=== PATIENT | male | born 1990 | race Caucasian/White ===

== ENCOUNTER → 2020-11-02 | Outpatient (CLI) | payer SELFPAY | LOC: M LABSMTC 11:55 | PROVIDERS: ATTEND Pediatrics | DX: Z20.828 Contact with and (suspected) exposure to other viral communicable diseases (principal) ==

== ENCOUNTER → 2024-01-08 | Outpatient (CLI) | payer OTHER | LOC: M WUC 14:15 | PROVIDERS: ATTEND Physician Assistant | DX: S63.511A Sprain of carpal joint of right wrist, initial encounter (principal) ==

== ENCOUNTER → 2025-07-12 | Outpatient (CLI) | payer OTHER | LOC: M PLAIMG 11:01 | PROVIDERS: ATTEND Physician Assistant | DX: M25.512 Pain in left shoulder (principal) ==

== ENCOUNTER → 2025-08-21 | Outpatient (REF) | payer OTHER ==
[2025-08-21 15:15] LABS: ALT/SGPT 44 U/L (7.0-40); AST/SGOT 35 U/L (<34); CALCIUM LEVEL 9.7 MG/DL (8.5-10.1); CARBON DIOXIDE LEVEL 26 MMOL/L (20-31); CHLORIDE LEVEL 105 MMOL/L (98-107); CHOLESTEROL LEVEL 185 MG/DL (<200); CHOLESTEROL RISK RATIO 4.12 (<5); CREATININE FOR GFR 0.92 MG/DL (0.70-1.30); GLOMERULAR FILTRATION RATE > 90.0 (>60); LDL CHOLESTEROL 113.6 MG/DL (<100); NON-HDL-C 140.2 MG/DL; POTASSIUM SERUM 4.5 MMOL/L (3.5-5.1); SODIUM LEVEL 136 MMOL/L (136-145); TRIGLYCERIDES LEVEL 133 MG/DL (<150)
[2025-08-21 15:30] LABS: ESTIMATED AVERAGE GLUCOSE 114.0 MG/DL (60-110)
== END ==
LOC: M LAB REF 14:09
PROVIDERS: ATTEND Student in an Organized Health Care Education/Training Program
DX: Z68.33 Body mass index [BMI] 33.0-33.9, adult (principal)

== ENCOUNTER → 2025-09-19 | Outpatient (CLI) | payer OTHER | LOC: M PLAIMG 07:22 | PROVIDERS: ATTEND Physician Assistant Surgical | DX: S43.431D Superior glenoid labrum lesion of right shoulder, subsequent encounter (principal); M75.51 Bursitis of right shoulder; M25.411 Effusion, right shoulder; M19.041 Primary osteoarthritis, right hand ==

== ENCOUNTER → 2025-09-20 | Outpatient (REF) | payer OTHER | LOC: M LAB REF 16:23 | PROVIDERS: ATTEND Student in an Organized Health Care Education/Training Program | DX: M25.562 Pain in left knee (principal); M25.561 Pain in right knee ==

== ENCOUNTER → 2025-11-17 | Outpatient (REF) | payer OTHER, MEDICAID ==
[2025-11-17 16:18] LABS: ALT/SGPT 27 U/L (7.0-40); AST/SGOT 23 U/L (<34); CALCIUM LEVEL 9.2 MG/DL (8.5-10.1); CARBON DIOXIDE LEVEL 29 MMOL/L (20-31); CHLORIDE LEVEL 106 MMOL/L (98-107); CREATININE FOR GFR 1.02 MG/DL (0.70-1.30); GLOMERULAR FILTRATION RATE > 90.0 (>60); POTASSIUM SERUM 4.7 MMOL/L (3.5-5.1); SODIUM LEVEL 143 MMOL/L (136-145)
== END ==
LOC: M LAB REF 15:57
PROVIDERS: ATTEND Student in an Organized Health Care Education/Training Program
DX: R79.89 Other specified abnormal findings of blood chemistry (principal)